=== PATIENT | female | born 2000 | race Hispanic/Latino ===

== ENCOUNTER 2018-04-06 22:31 | Emergency (ER) | payer OTHER ==
[2018-04-06] MEDS ORDERED: NA BORATE/BORIC AC/H2O/NACL 120 ML OPHTH IRRIG SOLN ONE (22:45)
[2018-04-06] MEDS ORDERED: TETRACAINE HCL 0.5% 4 ML OPHTH SOLN ONE (22:45)
[2018-04-06] MEDS ORDERED: FLUORESCEIN SODIUM 0.6 MG STRIP ONE (22:45)
[2018-04-06] MEDS ORDERED: ACETAMINOPHEN EXTRA STRENGTH 500 MG TABLET ONE (22:47)
== END 2018-04-07 00:32 | disposition home or self-care (01) ==
LOC: EDH 22:31
DX: H10.9 Unspecified conjunctivitis (principal); Z88.0 Allergy status to penicillin; Z72.0 Tobacco use

== ENCOUNTER 2018-12-17 16:56 | Emergency (ER) | payer OTHER | END 2018-12-17 17:18 | disposition home or self-care (01) | LOC: EDH 16:56 | DX: H61.22 Impacted cerumen, left ear (principal); Z88.0 Allergy status to penicillin; Z72.0 Tobacco use ==

== ENCOUNTER 2021-01-24 22:21 | Observation (INO) | payer MEDICAID, OTHER ==
[~2021-01-24] VITALS: Ht 162.6 cm; Wt 111.6 kg
[2021-01-24 22:23] VITALS: BP 142/89
[2021-01-25 00:05] LABS: APPEARANCE,URINE Cloudy (CLEAR); BILIRUBIN,URINE Small (NEGATIVE); COLOR,URINE Dark Yellow (YELLOW); GLUCOSE, URINE (UA) 250 mg/dL (NEGATIVE); KETONES,URINE >=160 mg/dL (NEGATIVE); LEUKOCYTE ESTERASE ,URINE Small (NEGATIVE); NITRATE,URINE Negative (NEGATIVE); OCCULT BLOOD,URINE Negative (NEGATIVE); PH,URINE 5.5 (5.0-8.0); PROTEIN,URINE POS 1+ mg/dL (NEGATIVE)
[2021-01-25 00:12] LABS: AMPHET/METH SCREEN,URINE NEGATIVE (NEGATIVE); BARBITURATE SCREEN, URINE NEGATIVE (NEGATIVE); BENZODIAZEPINES SCREEN,URINE NEGATIVE (NEGATIVE); CANNABINOID SCREEN,URINE NEGATIVE (NEGATIVE); COCAINE SCREEN,URINE NEGATIVE (NEGATIVE); OPIATE SCREEN,URINE NEGATIVE (NEGATIVE); PHENCYCLIDINE SCREEN,URINE NEGATIVE (NEGATIVE)
[2021-01-25 00:15] LABS: BACTERIA,URINE Few /HPF (None Seen)
[2021-01-25 00:16] LABS: MUCUS,URINE Few LPF (None Seen)
[2021-01-25] MEDS ORDERED: LACTATED RINGERS 1000ML IV SCH (00:30)
[2021-01-25 00:42] LABS: EOSINOPHILS % (AUTO) 0.5 % (0.0-8.0); HEMATOCRIT 34.5 % (36-48); LYMPHOCYTES % (AUTO) 13.6 % (21.0-51.0); MEAN CORPUSCULAR HEMOGLOBIN 27.8 pg (27.0-33.0); MEAN CORPUSCULAR HGB CONC 34.2 g/dL (32.0-36.0); MEAN CORPUSCULAR VOLUME 81.4 fL (79-99); MONOCYTES % (AUTO) 4.3 % (3.0-13.0); NEUTROPHILS % (AUTO) 81.2 % (40.0-77.0); PLATELET COUNT (AUTO) 164 K/uL (130-400); RED BLOOD CELL COUNT(AUTO) 4.24 MIL/uL (4.00-5.50); RED CELL DISTRIBUTION WIDTH 12.7 % (11.0-15.5); WHITE BLOOD COUNT (AUTO) 8.1 K/uL (4.8-10.8)
[2021-01-25 00:47] LABS: POTASSIUM 3.6 mmol/L (3.5-5.1)
[2021-01-25] MEDS ORDERED: PROMETHAZINE HCL 25 MG/ML 1ML AMPULE IM ONE (01:00)
== END 2021-01-25 02:10 | disposition home or self-care (01) ==
LOC: EDH 22:21 → LDH 22:38
PROVIDERS: ADMIT Obstetrics & Gynecology; ATTEND Obstetrics & Gynecology
DX: O21.2 Late vomiting of pregnancy (principal); Z20.822 Contact with and (suspected) exposure to COVID-19; O26.893 Other specified pregnancy related conditions, third trimester; M54.9 Dorsalgia, unspecified; R19.7 Diarrhea, unspecified; R10.9 Unspecified abdominal pain; Z3A.38 38 weeks gestation of pregnancy; Z79.899 Other long term (current) drug therapy
CPT/HCPCS: 36415; 59025; 80051; 80305; 81001; 82947; 85025; 87635; 96360; 96361; 96372; G0378 ×2; J2550; J7120